=== PATIENT | female | born 1955 | race Caucasian/White ===

== ENCOUNTER 2021-10-28 09:30 | Outpatient (RCR) | payer MEDICARE, BC, SELFPAY | END 2022-10-22 23:59 | disposition home or self-care (01) | PROVIDERS: PCP Family Medicine; Visit Provider Orthopaedic Surgery | DX: G56.03 Carpal tunnel syndrome, bilateral upper limbs (principal); Z51.89 Encounter for other specified aftercare | CPT/HCPCS: 97110; 97140; 97530; 97535; X5282 ==